=== PATIENT | male | born 1985 | race Caucasian/White ===

== ENCOUNTER 2017-10-22 22:57 | Emergency (ER) | payer BC ==
[2017-10-22] MEDS ORDERED: NS 0.9% 1000 ML* 1,000 ML IV ONE (23:32)
[2017-10-22] MEDS ORDERED: Metoclopramide IV* 5 MG/ML 2 ML VIAL IV SLOW PU ONE (23:33)
[2017-10-22] MEDS ORDERED: diPHENhydraMINE IV* 50 MG/ML 1 ml VIAL (BENADRYL) IV ONE (23:33)
[2017-10-22] MEDS ORDERED: Ketorolac INJ* 30 MG/ML 1 ML VIAL IV PUSH ONE (23:33)
--- NOTE | 2017-10-23 00:42 | ED ---
Headache - HPI Summary HPI Summary: Patient is a 32 y/o M w/ c/o WHEELER onsetting two hours ago. WHEELER is reported to be located across patient's forehead. Patient describes WHEELER as a migraine but notes he does not have Dx of migraines. He notes nausea and photophobia but denies vomiting. Patient states he took 600 mg motrin at around 2100. On triage, pain is rated 8/10 and nothing is noted to aggravate/alleviate Sx. Home medications and allergies reviewed. - History Of Current Complaint Chief Complaint: EDHeadache Stated Complaint: HEADACHE Time Seen by Provider: 10/22/17 23:20 Hx Obtained From: Patient Onset/Duration: Sudden Onset, Started hours ago - onset 2 hours ago, Still Present Currently Pain Is: Current Pain Scale(0-10)= - 8/10, Severe Timing: Constant Location of Headache: Other: - patient describes WHEELER as located across forehead Aggravating Factor: Bright Lights Allevating Factors: Nothing Associated Signs And Symptoms: Nausea, Other (Noted In Comments) - NEGATIVE: fever POSITIVE: photophobia - Allergies/Home Medications Allergies/Adverse Reactions: Allergies Allergy/AdvReac Type Severity Reaction Status Date / Time bupropion [From Wellbutrin] Allergy Unknown Verified 10/22/17 23:02 Reaction Details cefaclor [From Ceclor] Allergy Unknown Verified 10/22/17 23:01 Reaction Details Home Medications: Home Medications NK [No Home Medications Reported] 10/22/17 [History Confirmed 10/22/17] PMH/Surg Hx/FS Hx/Imm Hx Sensory History: Denies: Hx Legally Blind, Hx Deafness Opthamlomology History: Denies: Hx Legally Blind EENT History: Denies: Hx Deafness Infectious Disease History: No Infectious Disease History: Denies: Traveled Outside the [place] in Last 30 Days - Family History Known Family History: Negative: Blood Disorder - Social History Alcohol Use: None Substance Use Type: Reports: None Smoking Status (MU): Former Smoker Review of Systems Positive: Photophobia Positive: Nausea. Negative: Vomiting Positive: Headache All Other Systems Reviewed And Are Negative: Yes Physical Exam - Summary Physical Exam Summary: VITAL SIGNS: Reviewed. GENERAL: Patient is a well-developed and nourished male who is lying comfortable in the stretcher. Patient is not in any acute respiratory distress. HEAD AND FACE: No signs of trauma. No ecchymosis, hematomas or skull depressions. No sinus tenderness. EYES: PERRLA, EOMI x 2, No injected conjunctiva, no nystagmus. EARS: Hearing grossly intact. Ear canals and tympanic membranes are within normal limits. MOUTH: Oropharynx within normal limits. NECK: Supple, trachea is midline, no adenopathy, no JVD, no carotid bruit, no c- spine tenderness, neck with full ROM. CHEST: Symmetric, no tenderness at palpation LUNGS: Clear to auscultation bilaterally. No wheezing or crackles. CVS: Regular rate and rhythm, S1 and S2 present, no murmurs or gallops appreciated. ABDOMEN: Soft, non-tender. No signs of distention. No rebound no guarding, and no masses palpated. Bowel sounds are normal. EXTREMITIES: FROM in all major joints, no edema, no cyanosis or clubbing. NEURO: Alert and oriented x 3. No acute neurological deficits. Speech is normal and follows commands. SKIN: Dry and warm Triage Information Reviewed: Yes Vital Signs On Initial Exam: Initial Vitals Temp Pulse Resp BP Pulse Ox 97.7 F 71 15 135/66 100 10/22/17 23:02 10/22/17 23:02 10/22/17 23:02 10/22/17 23:02 10/22/17 23:02 Vital Signs Reviewed: Yes Diagnostics - Vital Signs Vital Signs Temp Pulse Resp BP Pulse Ox 10/22/17 23:45 66 100 10/22/17 23:44 111/67 10/22/17 23:02 97.7 F 71 15 135/66 100 - Laboratory Lab Statement: Any lab studies that have been ordered have been reviewed, and results considered in the medical decision making process. Re-Evaluation - Re-Evaluation First Eval Re-Evaluation Time: 00:40 Change: Improved Comment: Patient reports that he is feeling better and wants to go home. He will be discharged to home w/ Dx of headache. Headache Course/Dx - Course Assessment/Plan: Patient is a 32 y/o M w/ c/o WHEELER onsetting two hours ago. WHEELER is reported to be located across patient's forehead. Patient describes WHEELER as a migraine but notes he does not have Dx of migraines. He notes nausea and photophobia but denies vomiting. Patient states he took 600 mg motrin at around 2100. On triage, pain is rated 8/10 and nothing is noted to aggravate/alleviate Sx. During ED course, patient was given benadryl 25 mg IV ED ONCE ONE, Toradol 30 mg IV PUSH ED ONCE ONE, Reglan 10 mg IV SLOW PU ONCE ONE, and fluids. At 0040 , Patient reports that he is feeling better and wants to go home. He will be discharged to home w/ Dx of headache. - Diagnoses Provider Diagnoses: Headache Discharge - Sign-Out/Discharge Documenting (check all that apply): Patient Departure - discharge - Discharge Plan Condition: Stable Disposition: HOME Patient Education Materials: Acute Headache (ED) Referrals: Sadi Acosta MD [Primary Care Provider] - 2 Days Additional Instructions: RETURN TO ED FOR ANY CHANGING OR WORSENING SYMPTOMS. FOLLOW UP WITH PRIMARY CARE PHYSICIAN IN 1-2 DAYS. - Attestation Statements Document Initiated by Scribe: Yes Documenting Scribe: Ted Whitley Provider For Whom Scribe is Documenting (Include Credential): Taisha Easton MD Scribe Attestation: ITed, scribed for Taisha Easton MD on 10/23/17 at 0120.
[2017-10-23 00:58] VITALS: BP 101/57
== END 2017-10-23 00:58 | disposition home or self-care (01) ==
LOC: ED 22:57
DX: R51 Headache (principal); R11.0 Nausea; H53.149 Visual discomfort, unspecified; Z87.891 Personal history of nicotine dependence; R21 Rash and other nonspecific skin eruption
CPT/HCPCS: 96374; 96375; 99282; J1200; J1885; J2765

== ENCOUNTER 2017-10-27 12:23 | Emergency (ER) | payer BC ==
--- NOTE | 2017-10-27 12:44 | ED ---
Headache - HPI Summary HPI Summary: This patient is a 32 year old M presenting to [facility] with a chief complaint of a dull forehead intermittent wheeler for the last 6 days. Today the patient came in due to confusion for the last two days that have not been there. The patient rates the pain 1/10 in severity. Patient reports neck stiffness. Patient denies n/v, photophobia, fever, decreased ROM of the neck, paresthesia, and weakness. Pt was seen in the ED 6 days ago and dx with migraine given meds, pt slept, awoke felt better. No hx of migraines, pt states he has never had a WHEELER like the one he had and he rarely gets wheeler. - History Of Current Complaint Chief Complaint: EDHeadache Stated Complaint: HEADACHE/CONFUSION Time Seen by Provider: 10/27/17 12:35 Hx Obtained From: Patient Onset/Duration: Still Present Initially Headache Was: Initial Pain Scale(0-10)= - 1 Currently Pain Is: Current Pain Scale(0-10)= - 1 Timing: Constant Character: Dull Location of Headache: Frontal Associated Signs And Symptoms: Negative - n/v, photophobia, fever, decreased ROM of the neck, paresthesia, and weakness, Neck Stiffness, Other (Noted In Comments) - confusion - Allergies/Home Medications Allergies/Adverse Reactions: Allergies Allergy/AdvReac Type Severity Reaction Status Date / Time bupropion [From Wellbutrin] Allergy Unknown Verified 10/27/17 14:03 Reaction Details cefaclor [From Ceclor] Allergy Unknown Verified 10/27/17 14:03 Reaction Details Home Medications: Home Medications Naproxen TAB* [Naprosyn 250 mg TAB*] 500 mg PO BID PRN 10/27/17 [History Confirmed 10/27/17] PMH/Surg Hx/FS Hx/Imm Hx Cardiovascular History: Denies: Hx Angina, Hx Cardiomegaly, Hx Congestive Heart Failure, Hx Hypertension, Hx Myocardial Infarction Sensory History: Denies: Hx Legally Blind, Hx Deafness Opthamlomology History: Denies: Hx Legally Blind Neurological History: Reports: Hx Headaches, Hx Migraine Infectious Disease History: No Infectious Disease History: Denies: Traveled Outside the [place] in Last 30 Days - Family History Known Family History: Negative: Respiratory Disease, Seizure Disorder, Blood Disorder - Social History Alcohol Use: None Substance Use Type: Reports: None Smoking Status (MU): Former Smoker Review of Systems Negative: Fever Negative: Photophobia Negative: Vomiting, Nausea Musculoskeletal: Negative - decreased ROM of the neck Neurological: Other - confusion Positive: Headache. Negative: Weakness, Paresthesia All Other Systems Reviewed And Are Negative: Yes Physical Exam - Summary Physical Exam Summary: VITAL SIGNS: Reviewed. GENERAL: Patient is a well-developed and nourished MALE who is lying comfortable in the stretcher. Patient is not in any acute respiratory distress. HEAD AND FACE: No signs of trauma. No ecchymosis, hematomas or skull depressions. No sinus tenderness. EYES: PERRLA, EOMI x 2, No injected conjunctiva, no nystagmus. No photophobia. EARS: Hearing grossly intact. Ear canals and tympanic membranes are within normal limits. MOUTH: Oropharynx within normal limits. NECK: Supple, trachea is midline, no adenopathy, no JVD, no carotid bruit, no c- spine tenderness, neck with full ROM. No meningeal signs, no Kernig's or brudzinskis signs. CHEST: Symmetric, no tenderness at palpation LUNGS: Clear to auscultation bilaterally. No wheezing or crackles. CVS: Regular rate and rhythm, S1 and S2 present, no murmurs or gallops appreciated. ABDOMEN: Soft, non-tender. No signs of distention. No rebound no guarding, and no masses palpated. Bowel sounds are normal. EXTREMITIES: FROM in all major joints, no edema, no cyanosis or clubbing. NEURO: Alert and oriented x 3. No acute neurological deficits. Speech is normal and follows commands. SKIN: Dry and warm GCS: 15 Vital Signs On Initial Exam: Initial Vitals Temp Pulse Resp BP Pulse Ox 98 F 93 18 148/91 97 10/27/17 12:29 10/27/17 12:29 10/27/17 12:29 10/27/17 12:29 10/27/17 12:29 Diagnostics - Vital Signs Vital Signs Temp Pulse Resp BP Pulse Ox 10/27/17 12:29 98 F 93 18 148/91 97 - Laboratory Result Diagrams: 10/27/17 12:46 10/27/17 12:46 Lab Statement: Any lab studies that have been ordered have been reviewed, and results considered in the medical decision making process. - CT CT Head CT Interpretation Completed By: Radiologist - NO ACUTE INTRACRANIAL PATHOLOGY. ED physician has reviewed this radiology report. Headache Course/Dx - Course Assessment/Plan: Patient is a 32-year-old male who presents to the emergency department with a chief complaint of having headache and my head is foggy. Patient reports that last Monday he was diagnosed with a migraine headache for which he was given medications and the symptoms improved. Patient follow with the primary care physician on Monday he was given migraine headache medications which he only took once and the symptoms have improved. Today he reports having a slight headache only 1 out of 10 and also is having some cloudiness on his head. Physical exam within normal limits. The patient is neurological intact. Head CT impression: No acute interconnected pathology. Blood work without any significant abnormality. The patient continued to be asymptomatic. Headache is not present at this time. Since headache is not present I do not need to consult Neurology, or a CTA, or LP. Therefore the patient was discharged home with follow-up with PCP. I discussed all the findings and test results with the patient. Patient was instructed to return to the emergency room immediately if any of the symptoms return or worsens. Plan of care was discussed with the patient and understands and agrees. All questions were answered at patient satisfaction. There were no further complaints or concerns. Lung exam before discharge: CTA B/L. Good air exchange. No wheezing or crackles heard. CVS: S1 and S2 present. No murmurs appreciated. Patient is alert and oriented x 3. Patient is hemodynamically stable. Patient will be discharged home with follow up PCP in the next 2-3 days - Diagnoses Provider Diagnoses: Headache Discharge - Sign-Out/Discharge Documenting (check all that apply): Patient Departure - Discharge Plan Condition: Stable Disposition: HOME Patient Education Materials: Acute Headache (ED) Referrals: Ponce Clarke MD [Medical Doctor] - 2 Days Additional Instructions: RETURN TO THE EMERGENCY DEPARTMENT FOR CHANGING OR WORSENING SYMPTOMS. FOLLOW UP WITH PCP IN 1-2 DAYS. - Billing Disposition and Condition Condition: STABLE Disposition: Home - Attestation Statements Document Initiated by Scribe: Yes Documenting Scribe: Jamey Hutchins Provider For Whom Scribe is Documenting (Include Credential): Khanh Jaramillo MD Scribe Attestation: Jamey Hirsch , scribed for Khanh Jaramillo MD on 10/28/17 at 2103. Scribe Documentation Reviewed: Yes Provider Attestation: The documentation as recorded by the Jamey dewitt accurately reflects the service I personally performed and the decisions made by me, Khanh Jaramillo MD
--- NOTE | 2017-10-27 13:06 | RAD ---
HISTORY: Headache and confusion COMPARISONS: None TECHNIQUE: Multiple contiguous axial CT scans were obtained of the head without intravenous contrast. FINDINGS: HEMORRHAGE/INFARCT: There is no hemorrhage or acute infarct. MASSES/SHIFT: There is no mass or shift. EXTRA-AXIAL SPACES: There are no extra-axial fluid collections. SULCI AND VENTRICLES: The sulci and ventricles are normal in size and position for the patient's stated age. CEREBRUM: There are no focal parenchymal abnormalities. BRAINSTEM: There are no focal parenchymal abnormalities. CEREBELLUM: There are no focal parenchymal abnormalities. VESSELS: The vessels are grossly normal. PARANASAL SINUSES: The paranasal sinuses are clear. ORBITS: The orbits are unremarkable. BONES AND SOFT TISSUE: No bone or soft tissue abnormalities are noted. OTHER: None IMPRESSION: NO ACUTE INTRACRANIAL PATHOLOGY.
[2017-10-27 13:37] LABS: ABS Basophils 0 10^3/ul (0-0.2); ABS Eosinophils 0.3 10^3/ul (0-0.6); ABS Lymphocytes 1.4 10^3/ul (1.0-4.8); ABS Monocytes 0.4 10^3/ul (0-0.8); ABS Neutrophils 2.8 10^3/ul (1.5-7.7); ABS Nucleated RBC 0 10^3/ul; Eosinophil % 5.7 % (0-6); Hematocrit 46 % (42-52); Hemoglobin 15.7 g/dl (14.0-18.0); Lymphocyte % 28.8 % (25-47); Mean Corpuscular HGB Conc 34 g/dl (31-36); Mean Corpuscular Hemoglobin 31 pg (27-31); Mean Corpuscular Volume 92 fL (80-94); Mean Platelet Volume 7.6 um3 (7.4-10.4); Nucleated Red Blood Cells % 0.1; Platelet Count 211 10^3/ul (150-450); Red Blood Count 5.03 10^6/ul (4.00-5.40); Red Cell Distribution Width 13 % (10.5-15); White Blood Count 4.9 10^3/ul (3.5-10.8)
[2017-10-27 14:01] LABS: EGFR Non-African American 87.1 (>60)
[2017-10-27 14:36] VITALS: BP 137/71
== END 2017-10-27 14:35 | disposition home or self-care (01) ==
LOC: ED 12:23
CPT/HCPCS: 36415; 70450; 80053; 82375; 85025; 85652